=== PATIENT | male | born 1985 | race Caucasian/White ===

== ENCOUNTER 2018-10-18 17:14 | Emergency (ER) | payer OTHER ==
[~2018-10-18] VITALS: Ht 177.8 cm; Wt 83.9 kg
[2018-10-18 17:21] VITALS: Ht 177.8 cm; Wt 83.9 kg
[2018-10-18 19:31] VITALS: BP 128/80
== END 2018-10-18 19:31 | disposition home or self-care (01) ==
LOC: ED 17:14 → EDBD 17:14 → ED 19:31
DX: S83.91XA Sprain of unspecified site of right knee, initial encounter (principal); V29.49XA Motorcycle driver injured in collision with other motor vehicles in traffic accident, initial encounter; Y93.55 Activity, bike riding; Y92.413 State road as the place of occurrence of the external cause; Y99.8 Other external cause status
CPT/HCPCS: J1885; Q0162